=== PATIENT | male | born 1990 | race African-American/Black ===

== ENCOUNTER 2018-03-20 11:26 | Emergency (ER) | payer SELFPAY ==
[2018-03-20 11:54] VITALS: BP 134/80; PULSE 84; TEMP 98.4; BMI 34.7
--- NOTE | 2018-03-20 12:32 | PDOC ---
History of Present Illness - General Chief Complaint: Cold Symptoms Stated Complaint: COLD SYMPTOMS Time Seen by Provider: 03/20/18 12:13 History Source: Patient Exam Limitations: No Limitations Past History - Past Medical History Allergies/Adverse Reactions: Allergies Allergy/AdvReac Type Severity Reaction Status Date / Time No Known Allergies Allergy Verified 03/20/18 11:51 COPD: No GI Disorders: No HTN: No - Surgical History GI Surgery: No Neurologic Surgery: No - Immunization History Immunization Up to Date: No - Suicide/Smoking/Psychosocial Hx Smoking History: Current every day smoker Have you smoked in the past 12 months: Yes Information on smoking cessation initiated: No Hx Alcohol Use: No Drug/Substance Use Hx: Yes *Physical Exam - Vital Signs Last Vital Signs Temp Pulse Resp BP Pulse Ox 98.4 F 84 18 134/80 100 03/20/18 11:51 03/20/18 11:51 03/20/18 11:51 03/20/18 11:51 03/20/18 11:51 - Physical Exam General Appearance: No: Apparent Distress HEENT: positive: Pharyngeal Erythema (mild). negative: Muffled/Hoarse voice, Tonsillar Exudate, Tonsillar Erythema, Nasal Congestion, Rhinorrhea, Sinus Tenderness Respiratory/Chest: positive: Lungs Clear, Normal Breath Sounds. negative: Respiratory Distress Cardiovascular: positive: Regular Rhythm, Regular Rate, S1, S2. negative: Murmur Gastrointestinal/Abdominal: positive: Normal Bowel Sounds, Soft. negative: Tender, Distended, Guarding, Rebound Integumentary: positive: Normal Color Neurologic: positive: Fully Oriented, Alert, Normal Mood/Affect Moderate Sedation - Procedure Monitoring Vital Signs: Procedure Monitoring Vital Signs Temperature 98.4 F 03/20/18 11:51 Pulse Rate 84 03/20/18 11:51 Respiratory Rate 18 03/20/18 11:51 Blood Pressure 134/80 03/20/18 11:51 O2 Sat by Pulse Oximetry (%) 100 03/20/18 11:51 Medical Decision Making - Medical Decision Making 28 y/o M with no sig pmh presents with cold-like sxs x 5 days. Mentions having fever (Tmax 101.2), sore throat, cough with yellow phlegm and some post-tussive emesis. Had some watery diarrhea yesterday, which has now resolved. Patient has not taken any antipyretics today. Denies sob, cp, abd pain, vomiting. Patient afebrile here; appears well Likely viral URI Stable for dc 03/20/18 12:30 *DC/Admit/Observation/Transfer Diagnosis at time of Disposition: Viral URI - Discharge Dispostion Disposition: HOME Condition at time of disposition: Stable Decision to Admit order: No - Referrals - Patient Instructions Printed Discharge Instructions: DI for Viral Upper Respiratory Infection -- Adult Additional Instructions: Thank you for choosing [facility]. It was a pleasure taking care of you. Likely you have viral infection Take Motrin/Tylenol if needed for fever Do salt water gargles to help with throat pain Follow up with your doctor in 2-3 days. Return to the Emergency Department if your symptoms worsen or persist or other concerning symptoms. - Post Discharge Activity
== END 2018-03-20 12:46 | disposition home or self-care (01) ==
LOC: JERFT 11:26
DX: J06.9 Acute upper respiratory infection, unspecified (principal); B97.89 Other viral agents as the cause of diseases classified elsewhere; F17.210 Nicotine dependence, cigarettes, uncomplicated
CPT/HCPCS: 99281-25

== ENCOUNTER 2019-04-24 16:10 | Emergency (ER) | payer OTHER ==
[2019-04-24 16:30] VITALS: BP 135/87; PULSE 95; TEMP 98.5; BMI 34.7
[2019-04-24] MEDS ORDERED: ONDANSETRON *ODT* 4 MG TABLET SL ONE (16:40)
[2019-04-24] MEDS ORDERED: ONDANSETRON *ODT* 4 MG TABLET ONE (17:31)
--- NOTE | 2019-04-24 17:44 | PDOC ---
History of Present Illness - General Chief Complaint: Pain Stated Complaint: STM VIRUS Time Seen by Provider: 04/24/19 16:32 History Source: Patient Exam Limitations: No Limitations - History of Present Illness Travel History: No Initial Comments: 04/24/19 16:33 29-year-old male presents ED with sudden onset of nausea and vomiting since 4 AM this morning. Patient states his child with similar symptoms and was seen in fast track. Patient denies fever, chills, diarrhea, abdominal pain headache, recent travel, or recent illness. Timing/Duration: reports: intermittent Quality: reports: mild Alleviating Factors: improves with: Vomiting Past History - Past Medical History Allergies/Adverse Reactions: Allergies Allergy/AdvReac Type Severity Reaction Status Date / Time No Known Allergies Allergy Verified 04/24/19 16:29 Home Medications: Ambulatory Orders NK [No Known Home Medication] 03/20/18 COPD: No GI Disorders: No HTN: No - Surgical History GI Surgery: No Neurologic Surgery: No - Immunization History Immunization Up to Date: No - Psycho Social/Smoking Cessation Hx Smoking History: Never smoked Have you smoked in the past 12 months: Yes Hx Alcohol Use: No Drug/Substance Use Hx: No Patient Lives Alone: No Lives with/in: spouse/SO Review of Systems - Review of Systems Able to Perform ROS?: No Is the patient limited Wallisian proficient: No Constitutional: No: Symptoms Reported HEENTM: No: Symptoms Reported Respiratory: No: Symptoms reported Cardiac (ROS): No: Symptoms Reported ABD/GI: Yes: Nausea, Vomiting. No: Abdominal cramping : No: Symptoms Reported Musculoskeletal: No: Symptoms Reported Integumentary: No: Symptoms Reported Neurological: No: Symptoms reported *Physical Exam - Vital Signs Last Vital Signs Temp Pulse Resp BP Pulse Ox 98.5 F 95 H 16 135/87 100 04/24/19 16:28 04/24/19 16:28 04/24/19 16:28 04/24/19 16:28 04/24/19 16:28 - Physical Exam General Appearance: Yes: Nourished, Appropriately Dressed. No: Apparent Distress HEENT: positive: TMs Normal, Pharynx Normal. negative: Pale Conjunctivae Neck: positive: Normal Thyroid Respiratory/Chest: positive: Lungs Clear, Normal Breath Sounds. negative: Respiratory Distress, Accessory Muscle Use Cardiovascular: positive: Regular Rhythm, Regular Rate. negative: Murmur Gastrointestinal/Abdominal: positive: Soft. negative: Tenderness Integumentary: positive: Normal Color, Warm, Moist Neurologic: positive: Motor Strength 5/5 (Ambulatory) ED Treatment Course - Medications Given in the ED: ED Medications Discontinued Medications Generic Name Dose Route Start Last Admin Trade Name Varun PRN Reason Stop Dose Admin Ondansetron HCl 4 mg 04/24/19 16:40 04/24/19 17:32 Zofran Odt - SL 04/24/19 16:41 4 mg ONCE ONE Administration Medical Decision Making - Medical Decision Making 04/24/19 17:07 Chief complaint: Nausea and vomiting since this a.m. Daughter with similar symptoms. No other complaints. Exam: Patient no abdominal tenderness vital signs stable. Plan: Zofran sublingual and p.o. challenge to follow 04/24/19 17:48 Patient states feeling moderate improvement. Will discharge home with Zofran. Patient tolerating Gatorade Discharge - Discharge Information Problems reviewed: Yes Clinical Impression/Diagnosis: Vomiting Condition: Improved Disposition: HOME - Follow up/Referral Referrals: Roberto Pierre MD [Primary Care Provider] - - Patient Discharge Instructions Patient Printed Discharge Instructions: DI for Vomiting -- Adult Additional Instructions: Follow bland diet for the next 2 days avoiding spicy greasy and acidy food. Take Zofran as needed for nausea. Stay well-hydrated taking small frequent sips of fluid. If symptoms worsen please return to the nearest ER otherwise follow-up with your primary care physician. - Post Discharge Activity
== END 2019-04-24 17:50 | disposition home or self-care (01) ==
LOC: JER 16:10
DX: R11.2 Nausea with vomiting, unspecified (principal)
CPT/HCPCS: 99283-25; Q0162

== ENCOUNTER 2024-08-15 14:17 | Emergency (ER) | payer OTHER ==
[2024-08-15 14:57] VITALS: BP 120/71; PULSE 120; RESP 16; TEMP 98; BMI 32.7
[2024-08-15] MEDS ORDERED: ACETAMINOPHEN 500 MG TABLET (FP) ONE (15:27)
[2024-08-15] MEDS: ACETAMINOPHEN 500 MG TABLET (FP) PO ONE (15:31)
[2024-08-15] MEDS: DIPHTH,PERTUSS(ACELL),TET 0.5 ML DISP.SYRIN IM ONE (15:32)
[2024-08-15] MEDS ORDERED: DIPHTH,PERTUSS(ACELL),TET 0.5 ML DISP.SYRIN IM ONE (15:32)
[2024-08-15] MEDS: BACITRACIN ZINC 15 GM TUBE TOPICAL OINTMENT TP ONE (16:22)
[2024-08-15] MEDS ORDERED: BACITRACIN 0.9 GM PACKET ONE (16:22)
[2024-08-15] MEDS: KETOROLAC TROMETHAMINE 30 MG/1 ML VIAL IM ONE (17:03)
[2024-08-15] MEDS ORDERED: KETOROLAC TROMETHAMINE 30 MG/1 ML VIAL ONE (17:04)
== END 2024-08-15 17:34 | disposition home or self-care (01) ==
LOC: JER 14:17
PROC: 3E0233Z Introduction of Anti-inflammatory into Muscle, Percutaneous Approach (ICD-10-PCS; principal; 2024-08-15)
PROC: 3E0234Z Introduction of Serum, Toxoid and Vaccine into Muscle, Percutaneous Approach (ICD-10-PCS; 2024-08-15)
DX: S00.81XA Abrasion of other part of head, initial encounter (principal); S80.211A Abrasion, right knee, initial encounter; S80.212A Abrasion, left knee, initial encounter; M25.511 Pain in right shoulder; M25.521 Pain in right elbow; Z23 Encounter for immunization; X95.9XXA Assault by unspecified firearm discharge, initial encounter
CPT/HCPCS: 70450-TC; 71045-TC-FY; 72125-TC; 73030-TC-RT-FY; 73060-TC-RT-FY; 73070-TC-RT-FY; 73130-TC-RT-FY; 90471; 90715; 96372; 99285-25